=== PATIENT | female | born 1980 | race Caucasian/White ===

== ENCOUNTER 2016-09-27 17:00 | Emergency (ER) | payer BC, OTHER ==
[2016-09-27] MEDS ORDERED: Ibuprofen TAB* 400 MG PO ONE (20:22)
--- NOTE | 2016-09-27 20:22 | UC ---
Headache HPI - HPI Summary HPI Summary: posterior headache at the top of her neck on the left side,1.5 weeks ago after rolling over in bed, that has now gone away. Then 2 days ago pt had bifrontal headache that she describes as pressure, and rates a "4" associated with bilateral facial (cheek) numbness, that is now only left cheek numbness. No focal weakness, no visual symptoms, no speech problems, no gait problems. No hx migraine. No photophobia or nausea. +hx TMJ wears a dental appliance. 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 No hx shingles, but did have chicken pox. Has no rash. No URI symptoms, no rhinorrhea, no sore throat. - History Of Current Complaint Chief Complaint: UCHeadaruslan Stated Complaint: LEFT SIDE FACE NUMBNESS/HEADACHE Time Seen by Provider: 09/27/16 19:15 Hx Obtained From: Patient Hx Last Menstrual Period: 09/01/16 Onset/Duration: Gradual Onset, Lasting Days - 2, Still Present Onset Of Symptoms: Gradual Initially Headache Was: Moderate Pain Intensity: 4 Pain Scale Used: 0-10 Numeric Timing: Constant Character: Pressure Location of Headache: Frontal Aggravating Factor: Nothing Allevating Factors: Nothing Associated Signs And Symptoms: Positive: Neck Pain - 1.5 weeks ago, gone now.. Negative: Dizziness, Nausea, Vomiting, Sinus Pressure, Fever, Neck Stiffness, Decreased LOC, Visual Changes - Allergies/Home Medications Allergies/Adverse Reactions: Allergies Allergy/AdvReac Type Severity Reaction Status Date / Time Erythromycin AdvReac Mild GI Upset Verified 09/27/16 17:43 Home Medications: Home Medications Ibuprofen [Ibuprofen 200 MG] 400 mg PO PRN 09/27/16 [History] Multiple Vitamin [Multivitamins] 1 cap PO DAILY 09/27/16 [History Confirmed 09/10] PMH/Surg Hx/FS Hx/Imm Hx Previously Healthy: Yes - Surgical History Surgical History: None - Family History Known Family History: Positive: Other - no hx stroke or aneurysms - Social History Lives: With Family Alcohol Use: Occasionally Substance Use Type: None Smoking Status (MU): Never Smoked Tobacco Review of Systems Constitutional: Negative Skin: Negative Eyes: Negative ENT: Negative Respiratory: Negative Cardiovascular: Negative Gastrointestinal: Negative Genitourinary: Negative Motor: Negative Neurovascular: Negative Musculoskeletal: Negative Neurological: Negative Psychological: Negative All Other Systems Reviewed And Are Negative: Yes Physical Exam Triage Information Reviewed: Yes Appearance: Well-Appearing, Well-Nourished, Pain Distress Vital Signs: Initial Vital Signs Temp 99.1 F 09/27/16 17:32 Pulse 68 09/27/16 17:32 Resp 14 09/27/16 17:32 BP 120/63 09/27/16 17:32 Pulse Ox 100 09/27/16 17:32 Vital Signs Reviewed: Yes Eyes: Positive: Conjunctiva Clear, Other: - fundi discs sharp and flat, no hemorrhage ENT: Positive: Normal ENT inspection, Hearing grossly normal, TMs normal, Other : - No TMJ tenderness Dental Exam: Normal Dental: Negative: Percussion Tenderness @, Gross Decay/Caries @, Dental Fracture @, Abscess @, Cellulitis @, Cervical Lymphadenopathy Neck: Positive: Supple, Nontender, No Lymphadenopathy Respiratory: Positive: Lungs clear, Normal breath sounds, No respiratory distress, No accessory muscle use Cardiovascular: Positive: RRR, No Murmur, Pulses Normal, Brisk Capillary Refill Bowel Sounds: Positive: Present Musculoskeletal: Positive: Strength Intact, ROM Intact Neurological: Positive: Alert, Muscle Tone Normal, Other: - A& O x 3, CN II-XII intact, Motor 5/5, sensation intact, gait normal Psychological Exam: Normal Skin Exam: Normal Headache Course/Dx - Differential Dx/Diagnosis Differential Diagnosis/HQI/PQRI: Migraine, Sinus Headache, Subarachnoid Hemorrhage, Tension Headache, Other - TMJ. Barton's palsy, shingles Provider Diagnoses: acute headache. paresthesias - Physician Notifications Discussed Patient Care With: Dr. Mcclellan, neurology auto adjudication specialist. Does not feel pt needs imaging or labs at this time. Time Discussed With Above Provider: 20:30 Discharge - Discharge Plan Condition: Stable Disposition: HOME Patient Education Materials: Acute Headache (ED), Paresthesia (ED) Referrals: Arnold Multani [Primary Care Provider] - 2 Days (have definite follow up in 2 days. ) Sanchez Mcclellan MD [Medical Doctor] - Additional Instructions: Go to the emergency room if you have any new or worsening symptoms. Dr. Castillo consulted with Dr. Mcclellan by phone tonight. You may call their office for follow up also.
[2016-09-27 20:50] VITALS: BP 115/75
== END 2016-09-27 20:48 | disposition home or self-care (01) ==
LOC: UCCORT 17:00
DX: R51 Headache (principal); R20.2 Paresthesia of skin; Z88.1 Allergy status to other antibiotic agents
CPT/HCPCS: 99202; A9270-GY; G0463